=== PATIENT | female | born 1990 | race Two or more races ===

== ENCOUNTER 2023-04-26 09:47 | Emergency (ER) | payer SELFPAY ==
[~2023-04-26] VITALS: Ht 157.5 cm; Wt 47.7 kg
[2023-04-26 09:54] VITALS: TEMP 98.5
[2023-04-26] MEDS ORDERED: ACETAMINOPHEN 325 MG TABLET PO ONE (11:00)
[2023-04-26 12:47] VITALS: BP 112/82; PULSE 84; RESP 16
== END 2023-04-26 12:50 | disposition home or self-care (01) ==
LOC: EMS 09:53
DX: S09.90XA Unspecified injury of head, initial encounter (principal); X58.XXXA Exposure to other specified factors, initial encounter; Y93.89 Activity, other specified; Y92.89 Other specified places as the place of occurrence of the external cause; Y99.8 Other external cause status
CPT/HCPCS: 70450; 70486; 72125; 99284